=== PATIENT | male | born 1970 | race African-American/Black ===

== ENCOUNTER 2016-05-21 18:06 | Emergency (ER) | payer MEDICAID ==
[~2016-05-21] VITALS: Ht 172.7 cm; Wt 67.0 kg
[2016-05-21] MEDS ORDERED: SODIUM CHLORIDE 0.9% 1,000 ML IV ONE (19:20)
[2016-05-21 19:24] VITALS: BP 129/75
[2016-05-21 19:55] LABS: BASOPHILS % 0.7 % (0.0-2.0); EOSINOPHILS % 4.7 % (0.0-5.0); HEMATOCRIT. 38.7 % (42.0-52.0); HEMOGLOBIN. 12.8 g/dL (14.0-18.0); LYMPHOCYTES % 13.7 % (20.0-50.0); MEAN CORPUSCULAR HEMOGLOBIN 29.9 pg (28.0-32.0); MEAN CORPUSCULAR HGB CONC 33.1 g/dL (31.0-37.0); MEAN CORPUSCULAR VOLUME 90.3 fL (80.0-94.0); MEAN PLATELET VOLUME 6.7 fl (7.4-10.4); MONOCYTES % 8.5 % (2.0-8.0); NEUTROPHILS % 72.4 % (40.0-76.0); PLATELET 265 x1000/uL (130-400); RED BLOOD CELL COUNT 4.28 mill/uL (4.7-6.1); RED CELL DISTRIBUTION WIDTH 13.5 % (11.6-14.6); WHITE BLOOD COUNT 6.1 x1000/uL (4.5-11.0)
[2016-05-21 20:02] LABS: CHLORIDE 102 mEq/L (98-107); INDEX HEMOLYSI 1 (1-3); INDEX ICTERIC 1 (1-4); INDEX LIPEMIC 1 (1-3)
[2016-05-21 20:04] LABS: CALCIUM 8.8 mg/dL (8.5-10.1)
[2016-05-21 20:07] LABS: ALANINE AMINOTRANSFERASE 24 IU/L (13-61); ALBUMIN 3.4 g/dL (3.4-5.0); ANION GAP 11; CARBON DIOXIDE 34 mEq/L (21-32); UREA NITROGEN BLOOD 6 mg/dL (7-21); eGFR > 60 mL/min (>60)
== END 2016-05-21 21:04 | disposition home or self-care (01) ==
LOC: ER 18:08
DX: R42 Dizziness and giddiness (principal); F17.200 Nicotine dependence, unspecified, uncomplicated
CPT/HCPCS: 36415; 80053; 85025; 93005; 96360; 96361; 99285; J7030; Z7610

== ENCOUNTER 2016-05-23 09:12 | Emergency (ER) | payer MEDICAID ==
[~2016-05-23] VITALS: Ht 172.7 cm; Wt 699.0 kg
[2016-05-23 09:40] VITALS: BP 112/83
== END 2016-05-23 11:20 | disposition home or self-care (01) ==
LOC: ER 10:34
DX: R19.7 Diarrhea, unspecified (principal); F17.210 Nicotine dependence, cigarettes, uncomplicated
CPT/HCPCS: 99281

== ENCOUNTER 2016-11-08 06:29 | Emergency (ER) | payer MEDICAID ==
[~2016-11-08] VITALS: Ht 175.3 cm; Wt 73.0 kg
[2016-11-08 06:56] VITALS: BP 138/93
== END 2016-11-08 08:48 | disposition left against medical advice (07) ==
LOC: ER 07:29
DX: M54.5 Low back pain (principal); Z53.21 Procedure and treatment not carried out due to patient leaving prior to being seen by health care provider

== ENCOUNTER 2016-11-09 22:23 | Emergency (ER) | payer MEDICAID ==
[~2016-11-09] VITALS: Ht 175.3 cm; Wt 73.0 kg
[2016-11-10] MEDS ORDERED: TETANUS, DIPHTHERIA, PERTUSSIS VAC/PF 0.5ML (>7YR OLD) IM ONE (01:45)
[2016-11-10] MEDS ORDERED: BACITRACIN ZINC OINT UDPKT TOP ONE ×2 (01:45→03:45)
[2016-11-10 04:40] VITALS: BP 117/69
== END 2016-11-10 04:42 | disposition home or self-care (01) ==
LOC: ER 22:23
DX: S91.051A Open bite, right ankle, initial encounter (principal); L03.115 Cellulitis of right lower limb; W53.11XA Bitten by rat, initial encounter; Y93.89 Activity, other specified; Y92.099 Unspecified place in other non-institutional residence as the place of occurrence of the external cause; I10 Essential (primary) hypertension; Z23 Encounter for immunization; F17.210 Nicotine dependence, cigarettes, uncomplicated
CPT/HCPCS: 90471; 90715; 99283

== ENCOUNTER 2017-11-10 23:56 | Emergency (ER) | payer MEDICAID ==
[~2017-11-10] VITALS: Ht 175.3 cm; Wt 72.0 kg
[2017-11-11] MEDS ORDERED: GABAPENTIN 300MG CAPSULE PO ONE (02:30)
[2017-11-11 03:06] VITALS: BP 105/76
== END 2017-11-11 03:15 | disposition home or self-care (01) ==
LOC: ER 23:56
DX: B02.29 Other postherpetic nervous system involvement (principal); M54.9 Dorsalgia, unspecified; I10 Essential (primary) hypertension; F17.210 Nicotine dependence, cigarettes, uncomplicated
CPT/HCPCS: 99283; Z7610